=== PATIENT | male | born 1975 | race Caucasian/White ===

== ENCOUNTER 2019-09-28 13:53 | Emergency (ER) | payer OTHER, SELFPAY ==
--- NOTE | ~2019-09-28 | XR_ITS ---
XR chest 2V DATE: 09/28/2019 15:01 INDICATION: Productive cough, fever TECHNIQUE: PA and lateral views COMPARISON: None FINDINGS: Normal heart size. No hilar or mediastinal enlargement. No pulmonary infiltrate or consolid ation, pleural effusion or pulmonary vascular congestion or pneumothorax. IMPRESSION: No active cardiopulmonary disease Reviewed, dictated and finalized at location B.
[2019-09-28 14:13] VITALS: BP 170/94; PULSE 100; RESP 16; TEMP 36.3; O2SAT 100
--- NOTE | 2019-09-28 15:06 | ED.FEVER ---
HPI - Fever General Chief Complaint: Fever Stated Complaint: Fever,cough Time Seen by Provider: 09/28/19 14:11 Source: patient Mode of arrival: ambulatory Limitations: no limitations History of Present Illness HPI Narrative: Patient presents with chief complaint of congestion and cough that has progressively worsened over the past few weeks. Patient states the week of September 11 he tested positive for influenza. Patient states that he felt that he was getting better however the cough is lingered and is worse at night. Patient states he has been taking DayQuil and NyQuil. Patient states that he is a smoker. Patient denies known history of COPD. 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 Patient states he called his primary care to ask for a Z-Lavon and cough medication but they directed him reports to the emergency department. Patient denies fever, shortness of breath, chest pain, lethargy, body aches. Related Data Home Medications Medication Instructions Recorded Confirmed losartan 100 mg PO DAILY 09/28/19 Allergies Allergy/AdvReac Type Severity Reaction Status Date / Time lisinopril Allergy Unknown Verified 09/28/19 14:16 Review of Systems Review of Systems: Narrative: CONSTITUTIONAL: Denies fever, chills, or sweats. EYES: Denies visual changes, redness, or discharge. ENT: Reports congestion denies rhinorrhea, sore throat, or otalgia. CARDIOVASCULAR: Denies chest pain, palpitations, or edema. RESPIRATORY: Reports cough denies dyspnea. GASTROINTESTINAL: Denies abdominal pain, nausea, vomiting, or diarrhea. GENITOURINARY: Denies dysuria or hematuria. SKIN: Denies rash or itching. MUSCULOSKELETAL: Denies back pain, joint pain, or myalgia. NEUROLOGIC: Denies headache, numbness, dizziness, or weakness. PSYCHIATRIC: Denies anxiety or depression. PMFSH Social History Social History Gender identity (if verbalized by the patient): Male Exam Narrative: Exam Narrative: GENERAL: Well-appearing, well-nourished, and in no acute distress. Nontoxic in appearance. HEAD: Normocephalic, atraumatic. EYES: PERRLA and EOMI. ENT: Nares clear, no rhinorrhea or epistaxis. Mucous membranes moist. Oropharynx without tonsillar hypertrophy exudate or other lesions. Bilateral TMs pearly avery nonbulging NECK: Supple. No adenopathy or masses. No carotid bruits or JVD CHEST: Clear to auscultation. No respiratory distress. No wheezes rales or rhonchi. No tachypnea HEART: Regular rate and rhythm. EXTREMITIES: Normal range of motion. No edema. SKIN: Warm, dry, no rash. NEURO: No focal deficits. Alert and oriented x3. PSYCH: Normal mood and affect. Course Vital Signs Vital signs: Vital Signs Temperature 97.4 F L 09/28/19 14:13 Pulse Rate 100 09/28/19 14:13 Respiratory Rate 16 09/28/19 14:13 Blood Pressure 170/94 H 09/28/19 14:13 Pulse Oximetry 100 09/28/19 14:13 Temperature 97.4 F L 09/28/19 14:13 Pulse Rate 100 09/28/19 14:13 Respiratory Rate 16 09/28/19 14:13 Blood Pressure 170/94 H 09/28/19 14:13 Pulse Oximetry 100 09/28/19 14:13 MDM - Fever MDM Narrative Medical decision making narrative: Patient does not have COPD or signs of bacterial infection at this time. Treating symptomatic bronchitis. Patient instructed to self quarantine until symtpoms resolve. He will be given mucinex and tesslon perles. Patient states he is off work until saturday. Patient instructed to follow up with PCP if symptoms persist. Differential Diagnosis Differential diagnosis: Likely cellulitis, fever of unknown origin, gastroenteritis, community acquired pneumonia, viral infection and influenza Lab Data Labs: Influenza A Screen Negative Reference Range: Negative Influenza B Screen Negative Reference Range: Negative Imaging Data Radiologist's impression: ITS Impressions Chest X-Ray 09/28/19 15:04
[2019-09-28 15:57] VITALS: BP 160/103; PULSE 82; RESP 16; O2SAT 99
== END 2019-09-28 15:59 | disposition home or self-care (01) ==
PROVIDERS: Emergency Provider Family Medicine; PCP Family Medicine Sports Medicine
DX: B34.9 Viral infection, unspecified (principal)
CPT/HCPCS: 71046; 87804; 99283

== ENCOUNTER 2022-02-15 08:57 | Outpatient (CLI) | payer OTHER, SELFPAY ==
--- NOTE | 2022-02-15 | ECG_ITS ---
Measurements Intervals [place] Rate: 75 P: 60 [place]: 157 QRS: 98 QRSD: 109 T: 55 QT: 371 QTc: 415 Interpretive Statements SINUS RHYTHM BORDERLINE RIGHT AXIS DEVIATION [QRS AXIS > 90] NO PREVIOUS ECG AVAILABLE FOR COMPARISON Electronically Signed On 02-15-2022 10:21:36 CDT by George Morgan MD
--- NOTE | ~2022-02-15 | XR_ITS ---
EXAMINATION: XR chest 2V 02/15/2022 09:34 INDICATION: Hypertension. Nicotine dependence. PROCEDURE: 2 view chest COMPARISON: 09/28/2019 FINDINGS: The lungs are clear. The cardiomediastinal silhouette is within normal limits. There are no pleural effusions. There is no pneumothorax suspected. IMPRESSION: 1: NO ACUTE CARDIOPULMONARY DISEASE. Reviewed, dictated and finalized at location A.
[2022-02-15 11:33] LABS: Add Urine Microscopic? YES; Appearance Urine Clear (Clear); Bilirubin Urine Negative (Negative); Blood Urine Trace-lysed (Negative); Color Urine Yellow (Yellow); Glucose Urine UA Negative (Negative); Ketones Urine Negative (Negative); Leukocyte Esterase Ur Negative LEU/UL (NEGATIVE); Nitrate Urine Negative (Negative); Protein Urine Negative (Negative); Urobilinogen Urine 0.2 mg/dL (<2.0)
[2022-02-15 11:33] LABS: Basophils Absolute Auto 0.1 K/mm3 (0.0-0.1); Eosinophils Absolute Auto 0.4 K/mm3 (0-0.3); Eosinophils Percent Auto 3.7 % (0-4.4); Hematocrit 47.5 % (42.0-52.0); Hemoglobin 16.2 g/dL (14.0-18.0); Immature Granulocyte Absolute 0.21 K/mm3 (0.00-0.031); Immature Granulocyte Percent A 1.8 % (0-0.5); Lymphocytes Absolute Auto 3.59 K/mm3 (0.9-3.2); Lymphocytes Percent Auto 31.1 % (18.3-44.2); Mean Corpuscular HGB Conc 34.1 g/dl (32-36); Mean Corpuscular Volume 99.8 fl (80-100); Mean Platelet Volume 10.9 fl (7.4-10.4); Monocytes Absolute Auto 0.9 K/mm3 (0.1-0.6); Monocytes Percent Auto 7.5 % (2.6-8.5); Neutrophils Absolute Auto 6.3 K/mm3 (1.3-6.7); Neutrophils Percent Auto 54.9 % (45.5-73.1); Platelet Count Result 195 k/mm3 (150-375); Red Blood Count 4.76 M/mm3 (4.6-6.20); Red Cell Distribution Width 13.7 % (11.5-14.5); White Blood Count 11.5 K/mm3 (4.5-10.0)
[2022-02-15 11:38] LABS: WBC Urine 0-3 /hpf (0-3)
[2022-02-15 11:45] LABS: Partial Thromboplastin Time 26.9 SECONDS (22.3-36.8); Prothrombin Time 12.3 Seconds (11.1-14.7)
[2022-02-15 11:48] LABS: Alanine Aminotransferase 80 U/L (6-50); Albumin Level 4.6 g/dL (3.5-5.1); Alkaline Phosphatase 72 U/L (38-126); Anion Gap 10 mmol/L (8-16); Aspartate Amino Transferase 59 U/L (17-59); Bilirubin,Total 1.1 mg/dL (0.2-1.3); Blood Urea Nitrogen 11 mg/dL (9-20); Carbon Dioxide 26 mmol/L (22-30); Chloride 102 mmol/L (98-107); Estimated Glomerular Filt Rate > 60; Glucose 110 mg/dL (65-110); Sodium 138 mmol/L (137-145)
[2022-02-15 11:59] LABS: Erythrocyte Sedimentation Rate 10 mm/hr (0-20)
[2022-02-15 12:21] LABS: Vitamin D 25 Hydroxy 51.7 ng/mL
[2022-02-15 12:26] LABS: HIV 1/2 Ab P24 Ag Result Negative (Negative)
[2022-02-15 12:36] LABS: Hepatitis B Surface Antigen Negative (Negative)
[2022-02-15 12:42] LABS: HAV RESULT Negative (Negative); Hepatitis B Core IgM Result Negative (Negative)
[2022-02-15 12:54] LABS: Hepatitis C Virus Antibody Negative (Negative)
== END 2022-02-15 08:58 | disposition home or self-care (01) ==
PROVIDERS: PCP Internal Medicine; Visit Provider Family Medicine Sports Medicine
DX: Z01.818 Encounter for other preprocedural examination (principal); I10 Essential (primary) hypertension; Z86.16 Personal history of COVID-19; F17.200 Nicotine dependence, unspecified, uncomplicated; M51.26 Other intervertebral disc displacement, lumbar region; Z11.4 Encounter for screening for human immunodeficiency virus [HIV]; Z51.81 Encounter for therapeutic drug level monitoring; Z79.899 Other long term (current) drug therapy
CPT/HCPCS: 36415; 71046; 80053; 80074; 81001; 82306; 85025; 85610; 85652; 85730; 86703; 93005; G0432

== ENCOUNTER → 2022-04-27 09:50 | Outpatient (REF) | payer OTHER, SELFPAY ==
[2022-04-27 10:59] LABS: HIV 1/2 Ab P24 Ag Result Negative (Negative)
== END ==
LOC: ANHLAB 09:50
PROVIDERS: PCP Internal Medicine; Referring Provider Family Medicine Sports Medicine; Visit Provider Surgery
DX: Z03.818 Encounter for observation for suspected exposure to other biological agents ruled out (principal)
CPT/HCPCS: 86703; G0432

== ENCOUNTER 2024-05-06 10:46 | Emergency (ER) | payer OTHER, SELFPAY ==
--- NOTE | ~2024-05-06 | CT_ITS ---
EXAMINATION: CT facial bones w con DATE: 05/06/2024 11:51 INDICATION: Right neck swelling. Recent dental procedure. TECHNIQUE: Computed tomography (CT) of the facial bones and maxillofacial region was performed with 7 5 mL Omnipaque 350 intravenous contrast. Automated exposure control and iterative reconstruction tech [employer] were employed. The dose-length product was 714.91 mGy-cm. COMPARISON: None. FINDINGS: There is edema in right lower face. There are mildly enlarged bilateral submandibular lymph nodes. There is minimal mucosal thickening in the paranasal sinuses. There are multiple absent teeth on the right. There is no fracture. There is mild cervical spondylosis. IMPRESSION: 1. Right lower face soft tissue swelling status post likely recent extraction of multiple right-sided teeth. 2. Mild bilateral submandibular lymphadenopathy, likely reactive. Reviewed, dictated and finalized at location A. IMPRESSION: 1. Right lower face soft tissue swelling status post likely recent extraction o f multiple right-sided teeth. 2. Mild bilateral submandibular lymphadenopathy, likely reactive.
[2024-05-06 10:48] VITALS: BP 168/94; PULSE 94; RESP 16; TEMP 36.5; O2SAT 100
--- NOTE | 2024-05-06 11:23 | ED.DENTAL ---
HPI - Dental/Oral General Chief complaint: Dental/Oral Stated complaint: dental pain Time Seen by Provider: 05/06/24 11:02 Source: patient Mode of arrival: ambulatory Limitations: no limitations History of Present Illness HPI Narrative: This is a 48 year old female that presents to the ER for facial swelling. Reports he had a wisdom tooth removed yesterday morning. He started to have swelling around the area yesterday afternoon. The swelling has progressed. He has been taking penicillin with little relief. His dentist told him to call an oral surgeon. The oral surgeon's office told him to come to the ER. Denies fevers. MD Complaint: tooth pain Location: Tooth # (32) Related Data Home Medications Medication Instructions Recorded Confirmed losartan 100 mg tablet 100 mg PO DAILY 09/28/19 Allergies Allergy/AdvReac Type Severity Reaction Status Date / Time lisinopril Allergy Unknown Verified 09/28/19 14:16 Review of Systems Review of Systems: CONSTITUTIONAL: Denies fever ENT: Reports dentalgia All systems reviewed & are unremarkable except as noted in HPI and below PMFSH Past Medical History Medical History (Updated 05/06/24 @ 13:47 by Alejandra Roberts PA-C) History of hyperlipidemia History of hypertension Family History Family History (Updated 10/23/19 @ 11:17 by DARINEL Bob) Grandparent Diabetes mellitus Social History Social History (Updated 10/23/19 @ 11:17 by DARINEL Bob) Smoking packs per day: 1 Smoking cigarettes per day: 20.0 Years smoked: 20 Smoking pack-years: 20.00 Smoking status: Current every day smoker Tobacco type: cigarettes Alcohol intake: current Drinks per week: 6 Substance use: never Living arrangements: with family Occupation/Education: other Gender identity (if verbalized by the patient): Male Agree to blood products: Yes Exam Narrative: GENERAL: Well-appearing, well-nourished, and in no acute distress. HEAD: Normocephalic, atraumatic. EYES: EOMI. ENT: Mucous membranes moist. Oropharynx without tonsillar hypertrophy exudate or other lesions. Poor dentition. Right submandibular area with edema, tender to palpation. No trismus. Floor of mouth is soft NECK: Supple. No adenopathy or masses. CHEST: Clear to auscultation. No respiratory distress. No wheezes rales or rhonchi HEART: Regular rate and rhythm. No murmur heard. Normal peripheral pulses. EXTREMITIES: Normal range of motion. No edema. SKIN: Warm, dry, no rash. NEURO: No focal deficits. Alert and oriented x3. PSYCH: Normal mood and affect Course Course Emergency Course: Patient updated on his workup and agrees with plan of care Vital Signs Vital signs: Vital Signs Temperature 97.7 F 05/06/24 10:48 Pulse Rate 94 05/06/24 10:48 Respiratory Rate 16 05/06/24 10:48 Blood Pressure 168/94 H 05/06/24 10:48 Pulse Oximetry 100 05/06/24 10:48 Oxygen Delivery Room Air 05/06/24 10:48 Temperature 97.7 F 05/06/24 10:48 Pulse Rate 94 05/06/24 10:48 Respiratory Rate 16 05/06/24 10:48 Blood Pressure 168/94 H 05/06/24 10:48 Pulse Oximetry 100 05/06/24 10:48 Oxygen Delivery Room Air 05/06/24 10:48 MDM - Dental/Oral MDM Narrative Medical decision making narrative: patient presents to the emergency department for swelling of his face after having a tooth extracted. He is afebrile and nontoxic appearing. Floor of mouth is soft. No trismus. CBC with leukocytosis to 14.7. CRP and ESR elevated. CT facial bones shows soft tissue swelling. No focal abscess. Patient given a dose of Unasyn IV in the ER. Will be continued on oral Augmentin. He is to follow up with his dentist. He was given warnings to return to the ER Differential Diagnosis Differential diagnosis: Likely gingival abscess, toothache, dental abscess and other (cellulitis) Lab Data Attestation: I reviewed the patient's lab results. 05/06/24 11:25 05/06/24 11:44 Labs: Lab Results 05/06/24 05/06/24 Range/Units 11:25 11:44 WBC 14.7 H (4.5-10.0) K/mm3 RBC 4.98 (4.6-6.20) M/mm3 Hgb 16.3 (14.0-18.0) g/dL Hct 48.2 (42.0-52.0) % MCV 96.8 (80-100) fl MCH 32.7 (26-34) pg MCHC 33.8 (32-36) g/dl RDW 13.3 (11.5-14.5) % Plt Count 173 (150-375) k/mm3 MPV 10.6 H (7.4-10.4) fl Immature Gran % (Auto) 0.7 H (0-0.5) % Neut % (Auto) 72.3 (45.5-73.1) % Lymph % (Auto) 16.5 L (18.3-44.2) % [place] % (Auto) 8.9 H (2.6-8.5) % Eos % (Auto) 1.2 (0-4.4) % Baso % (Auto) 0.4 (0.2-1.2) % Lymph # (Auto) 2.42 (0.9-3.2) K/mm3 [place] # (Auto) 1.3 H (0.1-0.6) K/mm3 Eos # (Auto) 0.2 (0-0.3) K/mm3 Baso # (Auto) 0.1 (0.0-0.1) K/mm3 Abs Immat Gran (auto) 0.10 H (0.00-0.031) K/mm3 Absolute Neuts (auto) 10.6 H (1.3-6.7) K/mm3 Absolute Nucleated RBC 0.000 (0.0-0.012) K/mm3 Nucleated RBC % 0.0 (0.0-0.2) % ESR 39 H (0-20) mm/hr Sodium 136 L (137-145) mmol/L Potassium 3.7 (3.4-5.0) mmol/L Chloride 100 (98-107) mmol/L Carbon Dioxide 25 (22-30) mmol/L Anion Gap 11 (4-12) mmol/L BUN 11 (9-20) mg/dL Creatinine 0.60 L 0.70 L (0.7-1.3) mg/dL Estim Creat Clear Calc 166 144 ml/min Estimated GFR > 60 > 60 (59 - ) Glucose 121 H (65-110) mg/dL Calcium 9.8 (8.4-10.2) mg/dL C-Reactive Protein 4.9 H (<1.0) mg/dL Imaging Data Radiologist's impression: ITS Impressions Face CT 05/06/24 11:59 IMPRESSION: 1. Right lower face soft tissue swelling status post likely recent extraction of multiple right-sided teeth. 2. Mild bilateral submandibular lymphadenopathy, likely reactive. Critical Care Time Critical Care Time Critical Care Time: No Discharge Plan Discharge Clinical Impression: Cellulitis Qualifiers: Site of cellulitis: face Qualified Code(s): L03.211 - Cellulitis of face Patient Disposition: Home, Self-Care Condition: Stable Instructions: Antibiotic Form, Cellulitis (ED) Additional Instructions: Return to the Emergency Department if you experience fever >101, increasing swelling and redness of your tooth, or any other symptoms that are concerning to you Take antibiotic as prescribed. Tylenol or Ibuprofen as needed for pain. Follow up with your dentist Prescriptions: New amoxicillin-pot clavulanate 875-125 mg tablet 1 tablet PO Q12H 10 Days Qty: 20 0RF No Action losartan 100 mg tablet 100 mg PO DAILY Follow-up/Referrals: Deyanira,Jon Jaffe MD [Primary Care Provider] -
[2024-05-06 11:31] LABS: Basophils Absolute Auto 0.1 K/mm3 (0.0-0.1); Basophils Percent Auto 0.4 % (0.2-1.2); Eosinophils Absolute Auto 0.2 K/mm3 (0-0.3); Eosinophils Percent Auto 1.2 % (0-4.4); Hematocrit 48.2 % (42.0-52.0); Hemoglobin 16.3 g/dL (14.0-18.0); Immature Granulocyte Percent A 0.7 % (0-0.5); Lymphocytes Absolute Auto 2.42 K/mm3 (0.9-3.2); Lymphocytes Percent Auto 16.5 % (18.3-44.2); Mean Corpuscular HGB Conc 33.8 g/dl (32-36); Mean Corpuscular Hemoglobin 32.7 pg (26-34); Mean Corpuscular Volume 96.8 fl (80-100); Mean Platelet Volume 10.6 fl (7.4-10.4); Monocytes Absolute Auto 1.3 K/mm3 (0.1-0.6); Monocytes Percent Auto 8.9 % (2.6-8.5); Neutrophils Absolute Auto 10.6 K/mm3 (1.3-6.7); Neutrophils Percent Auto 72.3 % (45.5-73.1); Platelet Count Result 173 k/mm3 (150-375); Red Blood Count 4.98 M/mm3 (4.6-6.20); Red Cell Distribution Width 13.3 % (11.5-14.5); White Blood Count 14.7 K/mm3 (4.5-10.0)
[2024-05-06 11:44] LABS: Anion Gap 11 mmol/L (4-12); Blood Urea Nitrogen 11 mg/dL (9-20); CRP 4.9 mg/dL (<1.0); Calcium 9.8 mg/dL (8.4-10.2); Carbon Dioxide 25 mmol/L (22-30); Chloride 100 mmol/L (98-107); Estimated CRCL calculation 166 ml/min; Estimated Glomerular Filt Rate > 60; Glucose 121 mg/dL (65-110); Potassium 3.7 mmol/L (3.4-5.0); Sodium 136 mmol/L (137-145)
[2024-05-06 11:45] LABS: Estimated CRCL calculation 144 ml/min; Estimated Glomerular Filt Rate > 60
[2024-05-06 12:36] LABS: Erythrocyte Sedimentation Rate 39 mm/hr (0-20)
[2024-05-06] MEDS: AMPICILLIN SULB 3 GM/NS 100 ML 3 GM/100 ML VIAL IVPB (13:50)
[2024-05-06] MEDS: dexAMETHasone SOD PHOS INJ 10 MG/ML 1 ML VIAL IV PUSH (13:50)
[2024-05-06 14:25] VITALS: BP 138/76; PULSE 86; RESP 16; TEMP 36.8; O2SAT 98
== END 2024-05-06 14:25 | disposition home or self-care (01) ==
PROVIDERS: Emergency Provider Physician Assistant; PCP Family Medicine
DX: T81.49XA Infection following a procedure, other surgical site, initial encounter (principal); L03.211 Cellulitis of face; I10 Essential (primary) hypertension; E78.5 Hyperlipidemia, unspecified; F17.210 Nicotine dependence, cigarettes, uncomplicated; Y84.8 Other medical procedures as the cause of abnormal reaction of the patient, or of later complication, without mention of misadventure at the time of the procedure
CPT/HCPCS: 36415; 70487; 80048; 85025; 85652; 86140; 96365; 96375; 99284; J0295; J1100; Q9967